=== PATIENT | female | born 2000 | race African-American/Black ===

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

== ENCOUNTER 2020-02-18 14:56 | Inpatient (IN) ==
[2020-02-18] MEDS ORDERED: ONDANSETRON 4 MG/2 ML VIAL IV PRN ×2 (15:05→20:26)
[2020-02-18] MEDS ORDERED: MEPERIDINE 50 MG/1 ML VIAL IV PRN (15:05)
[2020-02-18] MEDS ORDERED: BUTORPHANOL 2 MG/ML VIAL IV PRN (15:05)
[2020-02-18] MEDS ORDERED: BICILLIN LA 2,400,000 UNIT/4 ML SYRINGE IM STA (15:12)
[2020-02-18] MEDS ORDERED: OXYTOCIN/LR 20 UNIT/1,000 ML BAG IV SCH (15:30)
[2020-02-18 15:31] LABS: Basophils % 0.2 % (0.0-0.8); Eosinophils # 0.1 10*3/uL (0.0-0.87); Eosinophils % 0.6 % (0.00-10.9); Hematocrit 26.7 VOL% (35.7-47.0); Hemoglobin 7.9 GM/DL (12.0-16.0); Immature Granulocytes % 0.6 %; Immature Granulocytes Absolute 0.06 #; Lymphocytes # 1.2 10*3/uL (1.4-4.0); Lymphocytes % 12.1 % (21.3-54.2); Mean Corpuscular HGB Conc 29.6 GM/DL (32-36); Mean Corpuscular Volume 78.8 FL (87-102); Mean Platelet Volume 10.8 FL (9.6-12.0); Monocytes % 5.2 % (1.7-12.7); Neutrophils % 81.3 % (38.7-73.9); Platelet Count 220 T/CUMM (130-400); Red Blood Count 3.39 MC/CUMM (3.8-5.5); White Blood Count 10.3 T/CUMM (4-12)
[2020-02-18] MEDS: LACTATED RINGERS 1,000 ML IV SCH ×3 (15:38→18:45)
[2020-02-18] MEDS ORDERED: PROMETHAZINE 25 MG/1 ML VIAL IM ONE (15:43)
[2020-02-18] MEDS ORDERED: diphenhydrAMINE 50 MG/1 ML VIAL IV PRN ×2 (15:43)
[2020-02-18] MEDS ORDERED: hydrOXYzine HCL 25 MG/1 ML VIAL IM PRN (15:43)
[2020-02-18] MEDS ORDERED: ePHEDrine 50 MG/ML VIAL IV PRN (15:43)
[2020-02-18] MEDS ORDERED: FAMOTIDINE 20 MG/2 ML VIAL IV ONE (15:43)
[2020-02-18] MEDS ORDERED: NALOXONE 0.4 MG/ML VIAL IV PRN (15:43)
[2020-02-18] MEDS ORDERED: LACTATED RINGERS 1,000 ML IV ONE (15:43)
[2020-02-18] MEDS ORDERED: CITRIC ACID/SODIUM CITRATE 30 ML UDCUP PO ONE (15:43)
[2020-02-18] MEDS ORDERED: AMPICILLIN INJ 2,000 MG in SODIUM CHLORIDE 0.9% 100 ML IV ONE (15:45)
[2020-02-18 15:57] LABS: Alanine Aminotransferase 11 U/L (13-56); Albumin 2.3 G/DL (3.4-5.0); Alkaline Phosphatase 138 U/L (45-117); Aspartate Amino Transferase 14 U/L (0-37); Bilirubin,Total < 0.39 MG/DL (0.2-1.0); Blood Urea Nitrogen 3 MG/DL (7-18); Calcium 8.5 MG/DL (8.5-10.1); Estimated Glom Filtration Rate 133 ML/MIN; Glucose 89 MG/DL (74-106); Osmolality,Calculated 270.7 MOS/KG (273-304)
[2020-02-18] MEDS ORDERED: fentaNYL 2 MCG/ROPIV 0.2% EPID 100 ML EPIDURAL SCH (16:00)
[2020-02-18 16:42] LABS: Barbiturates Screen,Urine Negative (Negative); Benzodiazepines Screen,Urine Negative (Negative); Cannabinoid Screen,Urine Positive (Negative); Opiate Screen,Urine Negative (Negative); Phencyclidine Screen,Urine Negative (Negative)
[2020-02-18 18:37] LABS: Apearance,Urine CLOUDY (Clear); Bacteria,Urine Occasional /HPF (Few); Bilirubin,Urine Negative (Negative); Blood, Urine Negative (Negative); Glucose,Urine (UA) Negative (Negative); Ketones,Urine Negative (Negative); Mucus,Urine Occasional /LPF (Occasional); Nitrite,Urine Negative (Negative); Protein,Urine 30 MG/DL; RBC,Urine 13 /HPF (0-4); Squamous Epithelial Cell,Urine Few /HPF (0-10); Trichomonas,Urine Few /HPF (<1); Urine Color Yellow (Yellow); Urine Specific Gravity 1.016 (1.001-1.035); WBC,Urine 84 /HPF (0-6)
[2020-02-18] MEDS ORDERED: METHYLERGONOVINE 0.2 MG/1 ML AMP ONE (19:25)
[2020-02-18] MEDS ORDERED: TRANEXAMIC ACID 1,000 MG/10 ML VIAL ONE (19:25)
[2020-02-18] MEDS ORDERED: CARBOPROST TROMETHAMINE 250 MCG/ML AMP IM ONE (19:25)
[2020-02-18] MEDS ORDERED: miSOPROStoL 200 MCG TABLET ONE (19:25)
[2020-02-18] MEDS ORDERED: AMPICILLIN INJ 1,000 MG in SODIUM CHLORIDE 0.9% 100 ML IV SCH (19:45)
[2020-02-18] MEDS ORDERED: MAGNESIUM HYDROXIDE SUSP 30 ML UDCUP PO PRN (20:26)
[2020-02-18] MEDS ORDERED: ACETAMINOPHEN 325 MG TABLET PO PRN (20:26)
[2020-02-18] MEDS ORDERED: BISACODYL 10 MG SUPP RECTAL PRN (20:26)
[2020-02-18] MEDS ORDERED: LACTATED RINGERS 1,000 ML IV SCH (20:30)
[2020-02-18 20:32] LABS: RPR Confirm - Less than 1 yr REACTIVE (Nonreactive)
[2020-02-18] MEDS: IBUPROFEN 800 MG TABLET PO PRN (21:47)
[2020-02-18] MEDS: DOCUSATE SODIUM 100 MG CAPSULE PO SCH (22:45)
[2020-02-19 06:27] LABS: Basophils % 0.2 % (0.0-0.8); Eosinophils # 0.1 10*3/uL (0.0-0.87); Eosinophils % 0.3 % (0.00-10.9); Hematocrit 25.4 VOL% (35.7-47.0); Hemoglobin 7.7 GM/DL (12.0-16.0); Immature Granulocytes % 0.6 %; Immature Granulocytes Absolute 0.11 #; Lymphocytes # 1.8 10*3/uL (1.4-4.0); Lymphocytes % 10.2 % (21.3-54.2); Mean Corpuscular HGB Conc 30.3 GM/DL (32-36); Mean Corpuscular Volume 76.3 FL (87-102); Mean Platelet Volume 11.7 FL (9.6-12.0); Monocytes % 6.6 % (1.7-12.7); Neutrophils % 82.1 % (38.7-73.9); Platelet Count 197 T/CUMM (130-400); Red Blood Count 3.33 MC/CUMM (3.8-5.5); Red Cell Distribution Width 14.7 % (9.3-17.3); White Blood Count 17.4 T/CUMM (4-12)
[2020-02-19 06:59] LABS: Band Neutrophils 6 % (0-10); Eosinophils 2 % (0-10); Hypochromasia 1+; Lymphocytes 7 % (20-55); Segmented Neutrophils 80 % (50-85); Total Cells Counted 100
[2020-02-19 07:00] LABS: Microcytosis 1+; Ovalocytes Slight; Platelet Estimate Adequate; Polychromasia Slight
[2020-02-19] MEDS: IBUPROFEN 800 MG TABLET PO PRN ×2 (09:06→20:59)
[2020-02-19] MEDS: DOCUSATE SODIUM 100 MG CAPSULE PO SCH ×2 (09:10→20:59)
[2020-02-19] MEDS: MULTIVITAMIN (PRENATAL) TABLET PO SCH (09:10)
[2020-02-19] MEDS: IRON (CARBONYL)/VIT C/B12/FA TABLET PO SCH (09:10)
[2020-02-20 07:57] VITALS: BP 92/57
[2020-02-20] MEDS: IRON (CARBONYL)/VIT C/B12/FA TABLET PO SCH (09:07)
[2020-02-20] MEDS: DOCUSATE SODIUM 100 MG CAPSULE PO SCH (09:07)
[2020-02-20] MEDS: MULTIVITAMIN (PRENATAL) TABLET PO SCH (09:07)
== END 2020-02-20 10:45 | disposition home or self-care (01) | DRG 807 ==
LOC: N.LDOUT 14:56 → N.LD 15:01 → N.OB 22:44
PROVIDERS: ADMIT Obstetrics & Gynecology; ATTEND Obstetrics & Gynecology